=== PATIENT | male | born 1985 | race Hispanic/Latino ===

== ENCOUNTER 2017-10-23 05:02 | Emergency (ER) | payer OTHER ==
[2017-10-23 05:35] VITALS: BP 131/100
== END 2017-10-23 20:05 | disposition left against medical advice (07) ==
LOC: ED 05:02
DX: Z53.21 Procedure and treatment not carried out due to patient leaving prior to being seen by health care provider (principal)

== ENCOUNTER 2021-04-21 15:15 | Emergency (ER) | payer SELFPAY ==
[2021-04-21 15:41] VITALS: BP 91/58
== END 2021-04-21 16:10 | disposition left against medical advice (07) ==
LOC: ED 15:15
DX: R41.82 Altered mental status, unspecified (principal); Z53.21 Procedure and treatment not carried out due to patient leaving prior to being seen by health care provider
CPT/HCPCS: 82962

== ENCOUNTER 2021-10-02 02:37 | Emergency (ER) | payer OTHER ==
[2021-10-02 02:43] VITALS: BP 144/92
--- NOTE | 2021-10-02 05:08 | Emergency Department Report ---
ED General Adult HPI - General Chief complaint: Anxiety Stated complaint: ANXIETY ATTACK Time Seen by Provider: 10/02/21 04:42 Source: patient Mode of arrival: Ambulatory Limitations: Language Barrier - History of Present Illness Initial comments: 36-year-old male pending history of anxiety who relocated from [facility] this reason presents emerged department requesting medication refill as well as Lexapro for some time as well as his usual evaluation. For no suicidal homicidal ideation. No fevers, chills, sweats. No chest pain palpitation. No nausea, no -: Gradual Radiation: non-radiation Quality: dull Consistency: constant Improves with: none Worsens with: none Associated Symptoms: denies other symptoms Treatments Prior to Arrival: none - Related Data Home Medications Medication Instructions Recorded Confirmed Last Taken Xanax 1 mg PO TID 10/23/17 10/23/17 Unknown Previous Rx's Medication Instructions Recorded Last Taken Type Naproxen 500 mg PO BID #20 tablet 08/09/21 Unknown Rx methOCARBAMOL [Robaxin TAB] 500 mg PO Q6H PRN #20 tablet 08/09/21 Unknown Rx ALPRAZolam [Xanax TAB] 0.25 mg PO BID PRN #7 tab 10/02/21 Unknown Rx Escitalopram Oxalate [Lexapro] 5 mg PO QDAY #30 tablet 10/02/21 Unknown Rx Allergies Allergy/AdvReac Type Severity Reaction Status Date / Time No Known Allergies Allergy Verified 10/02/21 02:43 ED Review of Systems ROS: Stated complaint: ANXIETY ATTACK Other details as noted in HPI Comment: All other systems reviewed and negative ED Past Medical Hx - Past Medical History Hx Congestive Heart Failure: No Hx Diabetes: No Hx Psychiatric Treatment: Yes (anxiety, depression) Hx Asthma: No Hx COPD: No - Surgical History Additional Surgical History: fx leg OR - Social History Smoking Status: Current Every Day Smoker Substance Use Type: Alcohol, Cocaine, Heroin, Marijuana - Medications Home Medications: Home Medications Medication Instructions Recorded Confirmed Last Taken Type Xanax 1 mg PO TID 10/23/17 10/23/17 Unknown History Naproxen 500 mg PO BID #20 tablet 08/09/21 Unknown Rx methOCARBAMOL [Robaxin TAB] 500 mg PO Q6H PRN #20 tablet 08/09/21 Unknown Rx ALPRAZolam [Xanax TAB] 0.25 mg PO BID PRN #7 tab 10/02/21 Unknown Rx Escitalopram Oxalate [Lexapro] 5 mg PO QDAY #30 tablet 10/02/21 Unknown Rx ED Physical Exam - General Limitations: Language Barrier General appearance: alert, in no apparent distress - Head Head exam: Present: atraumatic, normocephalic - Eye Eye exam: Present: normal appearance, PERRL, EOMI Pupils: Present: normal accommodation - ENT ENT exam: Present: normal exam, normal orophraynx, mucous membranes moist, TM's normal bilaterally - Neck Neck exam: Present: normal inspection, full ROM, lymphadenopathy. Absent: tenderness, meningismus - Respiratory Respiratory exam: Present: normal lung sounds bilaterally. Absent: respiratory distress, wheezes, rales, stridor - Cardiovascular Cardiovascular Exam: Present: regular rate, normal rhythm. Absent: systolic murmur, diastolic murmur, rubs, gallop - GI/Abdominal GI/Abdominal exam: Present: soft, normal bowel sounds - Rectal Rectal exam: Present: deferred - Extremities Exam Extremities exam: Present: normal inspection - Back Exam Back exam: Present: normal inspection - Neurological Exam Neurological exam: Present: alert, oriented X3, CN II-XII intact, normal gait - Psychiatric Psychiatric exam: Present: normal affect, normal mood, anxious - Skin Skin exam: Present: warm, dry, intact, normal color. Absent: rash ED Course Vital Signs 10/02/21 02:39 Temperature 98.2 F Pulse Rate 107 H Respiratory 18 Rate Blood Pressure 144/92 [Right] O2 Sat by Pulse 99 Oximetry Critical care attestation.: If time is entered above; I have spent that time in minutes in the direct care of this critically ill patient, excluding procedure time. ED Disposition Clinical Impression: Medication refill, Anxiety Disposition: HOME / SELF CARE / HOMELESS Is pt being admited?: No Does the pt Need Aspirin: No Condition: Stable Instructions: Medicine Refill at the Emergency Department, Managing Anxiety, Adult Prescriptions: Escitalopram Oxalate [Lexapro] 5 mg PO QDAY #30 tablet ALPRAZolam [Xanax TAB] 0.25 mg PO BID PRN #7 tab PRN Reason: Anxiety Referrals: [facility] [Provider Group] - 3-5 Days [facility], [LAB/CONTRACT] - 3-5 Days
== END 2021-10-02 06:25 | disposition home or self-care (01) ==
LOC: ED 02:37
DX: F41.9 Anxiety disorder, unspecified (principal); Z76.0 Encounter for issue of repeat prescription; F32.9 Major depressive disorder, single episode, unspecified; F17.200 Nicotine dependence, unspecified, uncomplicated; F12.90 Cannabis use, unspecified, uncomplicated; F11.90 Opioid use, unspecified, uncomplicated; F14.90 Cocaine use, unspecified, uncomplicated; Z72.89 Other problems related to lifestyle; Z79.899 Other long term (current) drug therapy
CPT/HCPCS: 99282

== ENCOUNTER 2021-12-26 07:42 | Emergency (ER) | payer SELFPAY ==
--- NOTE | 2021-12-26 07:53 | Emergency Department Report ---
History of Present Illness - General Chief Complaint: Overdose Stated Complaint: OVERDOSE Time Seen by Provider: 12/26/21 07:50 Source: patient, EMS Mode of arrival: Stretcher Limitations: No Limitations - History of Present Illness Initial Comments: Chief complaint: Possible overdose HPI: This is a male with history of heroin use who presents with decreased level consciousness. Family friend or shanker out called 911. Upon EMS arrival, academic advisor witnessed agonal respirations 3 breaths/min. Patient was not responsive. Patient did not respond to initial 2 mg of intranasal Narcan. Additional 0.5 mg was given. He is now awake. He desires to be discharged. He denies suicidal ideation. He denies suicidal attempt. He is able to give his full name and date of . He will not reveal his ingestion. He admits that he has used IV drugs in the past. Family friend or shanker out told EMS that he has a history of heroin use. MD Complaint: accidental overdose -: This morning (Patient was awake and alert 2 hours prior to arrival according to shanker out on scene) How Overdose Was Discovered: family/friend present Context: Accidental Overdose: wanted to get high Treatments Prior to Arrival: narcan (2.5 mg intranasal Narcan) ED Review of Systems ROS: Stated complaint: OVERDOSE Other details as noted in HPI Comment: All other systems reviewed and negative Constitutional: denies: chills, fever, malaise Respiratory: denies: cough, shortness of breath Cardiovascular: denies: chest pain ED Past Medical Hx - Past Medical History Previous Medical History?: No - Social History Smoking Status: Current Every Day Smoker Substance Use Type: Heroin ED Physical Exam - General Limitations: No Limitations General appearance: alert, in no apparent distress - Head Head exam: Present: atraumatic, normocephalic - Eye Eye exam: Present: normal appearance - ENT ENT exam: Present: mucous membranes moist - Neck Neck exam: Present: normal inspection, full ROM - Respiratory Respiratory exam: Present: normal lung sounds bilaterally. Absent: respiratory distress, wheezes, rales, rhonchi - Cardiovascular Cardiovascular Exam: Present: regular rate, normal rhythm, normal heart sounds. Absent: systolic murmur, diastolic murmur, rubs, gallop - GI/Abdominal GI/Abdominal exam: Present: soft, normal bowel sounds. Absent: distended, tenderness, guarding, rebound - Rectal Rectal exam: Present: deferred - Extremities Exam Extremities exam: Present: normal inspection - Back Exam Back exam: Present: normal inspection - Neurological Exam Neurological exam: Present: alert, oriented X3 - Psychiatric Psychiatric exam: Present: normal affect, normal mood. Absent: suicidal ideation - Skin Skin exam: Present: warm, dry, intact, normal color. Absent: rash ED Medical Decision Making - Medical Decision Making Unintentional overdose likely heroin. Patient revived with 2.5 mg of intranasal naloxone given per EMS. Patient desired immediate discharge. He left AGAINST MEDICAL ADVICE. Charge nurse and 2 staff members witnessed the discussion. Patient has decision-making capacity. He understands the risk of respiratory depression and . Critical care attestation.: If time is entered above; I have spent that time in minutes in the direct care of this critically ill patient, excluding procedure time. ED Disposition Clinical Impression: Accidental overdose, Acute respiratory failure Disposition: 07 LEFT AGAINST MEDICAL ADVICE Is pt being admited?: No Does the pt Need Aspirin: No Condition: Stable Instructions: Finding Treatment for Addiction
== END 2021-12-26 08:08 | disposition left against medical advice (07) ==
LOC: EDBD → MERGE 07:42 → ED 07:42
DX: T40.1X1A Poisoning by heroin, accidental (unintentional), initial encounter (principal); J96.90 Respiratory failure, unspecified, unspecified whether with hypoxia or hypercapnia; F17.200 Nicotine dependence, unspecified, uncomplicated; Y92.89 Other specified places as the place of occurrence of the external cause
CPT/HCPCS: 99283

== ENCOUNTER 2022-07-09 03:17 | Emergency (ER) | payer SELFPAY ==
--- NOTE | 2022-07-09 04:28 | Emergency Department Report ---
ED General Adult HPI - General Stated complaint: CARDIAC ARREST PUI?: No Time Seen by Provider: 07/09/22 04:09 Source: EMS Mode of arrival: Stretcher - History of Present Illness Initial comments: This is a 37-year-old male who is well-known to the EMS brought into the ER with concerns of overdose on heroin. According to the EMS when he got into the scene the police department was already there doing CPR. EMS states the house is known to use heroin. During route, two of 2 mg Narcan was given with no effect and total of 3 doses of epi was given with no return of spontaneous circulation. There was no shock advised. No bicarb was given. On arrival to the ER patient was on Juan with CPR in progress but patient was not being bagged by the EMS and I have informed them to bag the patient immediately. Immediately upon transfer the patient to our bed, no pulse was felt and CPR resumed immediately. Please see nurse sheet on what medication are given. Time of was called: 3:24AM - Related Data Home Medications Medication Instructions Recorded Confirmed Last Taken Xanax 1 mg PO TID 10/23/17 10/23/17 Unknown Previous Rx's Medication Instructions Recorded Last Taken Type Naproxen 500 mg PO BID #20 tablet 08/09/21 Unknown Rx methOCARBAMOL [Robaxin TAB] 500 mg PO Q6H PRN #20 tablet 08/09/21 Unknown Rx ALPRAZolam [Xanax TAB] 0.25 mg PO BID PRN #7 tab 10/02/21 Unknown Rx Escitalopram Oxalate [Lexapro] 5 mg PO QDAY #30 tablet 10/02/21 Unknown Rx Allergies Allergy/AdvReac Type Severity Reaction Status Date / Time No Known Allergies Allergy Verified 12/26/21 11:52 ED Review of Systems ROS: Stated complaint: CARDIAC ARREST Other details as noted in HPI Comment: Unobtainable due to pts medical conditions ED Past Medical Hx - Past Medical History Previous Medical History?: Yes Hx Congestive Heart Failure: No Hx Diabetes: No Hx Psychiatric Treatment: Yes (anxiety, depression) Hx Asthma: No Hx COPD: No - Surgical History Past Surgical History?: Yes Additional Surgical History: fx leg OR - Social History Substance Use Type: Alcohol, Cocaine, Marijuana, Heroin - Medications Home Medications: Home Medications Medication Instructions Recorded Confirmed Last Taken Type Xanax 1 mg PO TID 10/23/17 10/23/17 Unknown History Naproxen 500 mg PO BID #20 tablet 08/09/21 Unknown Rx methOCARBAMOL [Robaxin TAB] 500 mg PO Q6H PRN #20 tablet 08/09/21 Unknown Rx ALPRAZolam [Xanax TAB] 0.25 mg PO BID PRN #7 tab 10/02/21 Unknown Rx Escitalopram Oxalate [Lexapro] 5 mg PO QDAY #30 tablet 10/02/21 Unknown Rx ED Physical Exam - Head Head exam: Present: atraumatic, normocephalic, normal inspection - Eye Eye exam: Present: other (dilated pupil bilatearlly) - Cardiovascular Cardiovascular Exam: Present: other (no pulse) - GI/Abdominal GI/Abdominal exam: Present: soft. Absent: distended - Skin Skin exam: Present: other (cold to touch throughout. ) Critical Care Time: Yes Critical care time in (mins) excluding proc time.: 12 Critical care attestation.: If time is entered above; I have spent that time in minutes in the direct care of this critically ill patient, excluding procedure time. ED Disposition Clinical Impression: Cardiopulmonary arrest Disposition: 20 Is pt being admited?: No Does the pt Need Aspirin: No Condition: Stable Referrals: RICK SEGOVIA MD [Primary Care Provider] - 3-5 Days Time of Disposition: 04:29
== END 2022-07-09 05:52 ==
LOC: ED 03:17
DX: I46.9 Cardiac arrest, cause unspecified (principal); F41.9 Anxiety disorder, unspecified; F32.9 Major depressive disorder, single episode, unspecified; F12.90 Cannabis use, unspecified, uncomplicated; F14.90 Cocaine use, unspecified, uncomplicated; F11.90 Opioid use, unspecified, uncomplicated; Z79.899 Other long term (current) drug therapy
CPT/HCPCS: 92950; 99285